=== PATIENT | male | born 1955 | race Caucasian/White ===

== ENCOUNTER 2018-11-29 06:57 | Emergency (ER) | payer MEDICAID, OTHER ==
[~2018-11-29] VITALS: Ht 172.7 cm; Wt 100.5 kg
[~2018-11-29 06:57] MED LIST: AMLO-150 PO; BETA15CR4 TP; CALA180L4 TP; DIPH25CA61 PO; LINE600T15 PO; TRAM50TA2 PO
[2018-11-29 07:00] VITALS: BP 169/107
[2018-11-29] MEDS ORDERED: CEFAZOLIN 1,000 MG IM ONE (07:30)
[2018-11-29] MEDS ORDERED: TRIAMCINOLONE ACETONIDE 40 MG/ML, 1ML IM ONE (07:30)
[2018-11-29] MEDS ORDERED: CEFAZOLIN 1,000 MG ONE (07:33)
--- NOTE | 2018-11-29 07:52 | NUR ---
PT MEDICATED - 2 IM INJECTIONS. PT APPROPRIATE FOR DC.
--- NOTE | 2018-11-29 07:55 | NUR ---
Patient/Caregiver given discharge instructions and they have confirmed that they understand the instructions. Patient ambulatory with steady gait.
== END 2018-11-29 08:06 | disposition home or self-care (01) ==
LOC: ED 07:46
DX: L20.9 Atopic dermatitis, unspecified (principal); I10 Essential (primary) hypertension
CPT/HCPCS: 96372; 99283; J0690; J3301

== ENCOUNTER 2020-10-10 11:01 | Emergency (ER) | payer SELFPAY ==
[~2020-10-10] VITALS: Ht 162.6 cm; Wt 89.4 kg
[2020-10-10 12:06] LABS: MEAN CORPUSCULAR HEMOGLOBIN 28.4 pg (27.5-34.5); MEAN CORPUSCULAR HGB CONC 33.5 g/dL (33.2-36.2); MEAN PLATELET VOLUME 7.2 fL (7.4-10.4); PLATELET COUNT 490 x10^3/uL (130-400); RED BLOOD COUNT 5.23 x10^6/uL (4.38-5.82); RED CELL DISTRIBUTION WIDTH 13.6 % (9.4-14.8)
[2020-10-10 12:52] LABS: <RBC MORPHOLOGY> NORMAL; EOS#(MANUAL) 3.23 x10^3/uL (0.0-0.4); EOS% (MANUAL) 25 % (1-7); LYMPH#(MANUAL) 1.55 x10^3/uL (1-3.4); LYMPHS% (MANUAL) 12 % (22-44); MONOS#(MANUAL) 0.77 x10^3/uL (0.3-2.7); MONOS% (MANUAL) 6 % (2-9); SEG#(MANUAL) 7.35 x10^3/uL (1.8-6.8); SEGS% (MANUAL) 57 % (42-75)
[2020-10-10 12:53] LABS: <PLATELET ESTIMATE> INCREASED; <PLT MORPHOLOGY> NORMAL PLT MORPH
--- NOTE | 2020-10-10 15:29 | NUR ---
PT AMBULATED TO ROOM FROM LOBBY AT THIS TIME WITH STEADY GAIT.
[2020-10-10] MEDS ORDERED: COLCHICINE (15:58)
--- NOTE | 2020-10-10 15:59 | NUR ---
PT C/O BILAT LE REDNESS PAIN X2 WEEKS, STARTED ABOUT 8 HRS AFTER SECOND COVID VACCINE. PT HX REDNESS PAIN SKIN ALLERGY TO TORSO AND ARMS WHEN HE DOESN'T GET HIS ALLERGY SHOT. PT HAS NOT RECEIVED ALLERGY SHOT FOR 3 YEARS, PT TORSO AND ARMS RED, DRY, FLAKEY AND SENSITIVE TO TOUCH. BILAT LE LOOK THE SAME AT TOR[place] AND ARMS. PT CONNECTED TO MONITORING. CALL LIGHT IN REACH.
--- NOTE | 2020-10-10 16:02 | NUR ---
ERMD AT BEDSIDE FOR ASSESSMENT
[2020-10-10] MEDS ORDERED: hydrOXyzine 50MG TABLET ONE (16:13)
--- NOTE | 2020-10-10 16:17 | NUR ---
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
--- NOTE | 2020-10-10 16:19 | NUR ---
LAB CAN USE BLOOD ALREADY COLLECTED.
[2020-10-10 16:43] LABS: ALANINE AMINOTRANSFERASE 26 U/L (12-78); ALBUMIN 3.7 g/dL (3.4-5.0); ANION GAP 7 mmol/L (5-15); CALCIUM 9.6 mg/dL (8.5-10.1); CHLORIDE 106 mmol/L (98-107); CREATININE 1.23 mg/dL (0.7-1.3)
[2020-10-10 16:45] LABS: ALKALINE PHOSPHATASE 99 U/L (45-117); BILIRUBIN,TOTAL 0.2 mg/dL (0.2-1.0); TOTAL PROTEIN 8.4 g/dL (6.4-8.2)
--- NOTE | 2020-10-10 16:53 | NUR ---
ALL RESULTS ARE BACK AT THIS TIME. CHART UP FOR RECHECK.
[2020-10-10 17:39] VITALS: BP 202/114
== END 2020-10-10 17:59 | disposition home or self-care (01) ==
LOC: ED 16:53
DX: L03.115 Cellulitis of right lower limb (principal); L03.116 Cellulitis of left lower limb; L20.84 Intrinsic (allergic) eczema; I10 Essential (primary) hypertension
CPT/HCPCS: 36415; 80053; 85025; 99283; J7512; Q0177

== ENCOUNTER 2021-01-13 07:56 | Inpatient (IN) | payer SELFPAY ==
[~2021-01-13] VITALS: Ht 172.7 cm; Wt 90.3 kg
[~2021-01-13 07:56] MED LIST changes: +COLCHICINE
--- NOTE | 2021-01-13 08:30 | NUR ---
PT BROUGHT BACK FROM TRIAGE WITH COMPLAINT OF COUGH, SOB FOR 4 DAYS. PT DENIES CP, N/V, OR RECENT TAUMA.
[2021-01-13 09:17] LABS: BASOPHILS % (AUTO) 1 % (0-1); EOSINOPHILS % (AUTO) 7 % (1-7); LYMPHOCYTES % (AUTO) 11 % (22-44); MEAN CORPUSCULAR HEMOGLOBIN 27.8 pg (27.5-34.5); MEAN CORPUSCULAR HGB CONC 33.7 g/dL (33.2-36.2); MEAN PLATELET VOLUME 7.6 fL (7.4-10.4); MONOCYTES % (AUTO) 9 % (2-9); NEUTROPHILS % (AUTO) 73 % (42-75); PLATELET COUNT 607 x10^3/uL (130-400); RED BLOOD COUNT 4.63 x10^6/uL (4.38-5.82); RED CELL DISTRIBUTION WIDTH 13.7 % (9.4-14.8)
--- NOTE | 2021-01-13 09:20 | NUR ---
PT resting in bed, call light in reach.
[2021-01-13 09:21] LABS: ANION GAP 8 mmol/L (5-15); CALCIUM 9.1 mg/dL (8.5-10.1); CHLORIDE 108 mmol/L (98-107); CREATININE 1.71 mg/dL (0.7-1.3)
--- NOTE | 2021-01-13 09:56 | NUR ---
CONSULT TO CARDIOLOGY
--- NOTE | 2021-01-13 10:18 | NUR ---
TASK RN NOTE: IV STARTED. PT REPORTS TAKING AN ALLERGY MEDICATION "THAT YOU'RE ONLY SUPPOSED TO TAKE 1 EVERY 24 HOURS AND I TOOK 4. IT DID WEIRD THINGS TO MY BODY." PT REPORTS "IT STARTED WITH A C"
[2021-01-13] MEDS ORDERED: CEFTRIAXONE 1,000 MG in DEXTROSE 5% 50 ML IVPB ONE (10:30)
[2021-01-13] MEDS ORDERED: AZITHROMYCIN 500 MG in SODIUM CHLORIDE 0.9% 250 ML IV ONE (10:30)
--- NOTE | 2021-01-13 10:49 | NUR ---
Dr Amaya at bedside
--- NOTE | 2021-01-13 10:56 | NUR ---
code cardiac called
[2021-01-13] MEDS ORDERED: HEPARIN 1,000 UNITS/ML, 10ML ONE (11:02)
[2021-01-13] MEDS ORDERED: MIDAZOLAM 1 MG/ML, 5ML ONE (11:02)
[2021-01-13] MEDS ORDERED: BIVALIRUDIN 250 MG ONE (11:02)
[2021-01-13] MEDS ORDERED: VERAPAMIL 2.5 MG/ML, 2ML ONE (11:02)
[2021-01-13] MEDS ORDERED: LIDOCAINE 1%, 20ML ONE (11:02)
[2021-01-13] MEDS ORDERED: FENTANYL PF 100 MCG/2ML ONE (11:02)
[2021-01-13] MEDS ORDERED: ASPIRIN 81 MG TABLET EC ONE (11:08)
--- NOTE | 2021-01-13 11:21 | NUR ---
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
[2021-01-13] MEDS ORDERED: morphine SULFATE 10 MG/ML, 1ML IVPush PRN (12:30)
[2021-01-13] MEDS ORDERED: ONDANSETRON ODT 4 MG PO PRN (12:30)
[2021-01-13] MEDS ORDERED: ACETAMINOPHEN 325 MG TABLET PO PRN (12:30)
[2021-01-13] MEDS ORDERED: DOCUSATE 100 MG CAPSULE PO PRN (12:30)
[2021-01-13] MEDS ORDERED: BISACODYL 10 MG SUPP PR PRN (12:30)
[2021-01-13] MEDS ORDERED: hydrALAzine 20 MG/ML, 1ML IVPush PRN (12:30)
[2021-01-13] MEDS ORDERED: PROMETHAZINE 25 MG/ML, 1ML IM PRN (12:30)
[2021-01-13] MEDS ORDERED: ONDANSETRON 2MG/ML, 2ML IVPush PRN (12:30)
[2021-01-13] MEDS ORDERED: POLYETHYLENE GLYCOL 17 GM PACKET PO PRN (12:30)
[2021-01-13] MEDS: AZITHROMYCIN 500 MG TABLET PO SCH (14:34)
[2021-01-13] MEDS ORDERED: GUAIFENESIN 100 MG/5 ML, 10ML UDC ONE ×2 (15:48→19:53)
[2021-01-13] MEDS: GUAIFENESIN 100 MG/5 ML, 5ML UDC PO PRN ×2 (15:50→23:49)
[2021-01-13] MEDS: OXYcodone IR 5MG TABLET PO PRN ×2 (15:51→20:28)
[2021-01-13] MEDS: ALBUTEROL HFA 90 MCG/SPRAY INH PRN (23:49)
[2021-01-14 00:45] LABS: TROPONIN I 0.173 ng/mL (0.000-0.045)
[2021-01-14] MEDS: ALBUTEROL HFA 90 MCG/SPRAY INH PRN ×3 (04:14→21:26)
[2021-01-14] MEDS: GUAIFENESIN 100 MG/5 ML, 5ML UDC PO PRN (04:14)
[2021-01-14 06:00] LABS: BASOPHILS % (AUTO) 1 % (0-1); EOSINOPHILS % (AUTO) 10 % (1-7); LYMPHOCYTES % (AUTO) 9 % (22-44); MEAN CORPUSCULAR HEMOGLOBIN 27.2 pg (27.5-34.5); MEAN CORPUSCULAR HGB CONC 32.7 g/dL (33.2-36.2); MEAN PLATELET VOLUME 7.6 fL (7.4-10.4); MONOCYTES % (AUTO) 11 % (2-9); NEUTROPHILS % (AUTO) 69 % (42-75); PLATELET COUNT 515 x10^3/uL (130-400); RED BLOOD COUNT 4.38 x10^6/uL (4.38-5.82); RED CELL DISTRIBUTION WIDTH 13.9 % (9.4-14.8)
[2021-01-14] MEDS: ASPIRIN 81 MG TABLET EC PO SCH (06:02)
[2021-01-14 06:17] LABS: ALANINE AMINOTRANSFERASE 20 U/L (12-78); ALBUMIN 2.6 g/dL (3.4-5.0); ANION GAP 9 mmol/L (5-15); CALCIUM 8.7 mg/dL (8.5-10.1); CHLORIDE 108 mmol/L (98-107); CHOLESTEROL, TOTAL 158 mg/dL (140-239)
[2021-01-14 06:19] LABS: ALKALINE PHOSPHATASE 70 U/L (45-117); BILIRUBIN,TOTAL 0.4 mg/dL (0.2-1.0); CHOL/HDL RATIO 5.4; HDL CHOL % 18 % (26-37); HDL CHOLESTEROL (DIRECT) 29 mg/dL (40-60); LDL CHOLESTEROL,CALCULATED 109 mg/dL (54-169); LDL/HDL RATIO 3.8 (0.5-3.0); TRIGLYCERIDES 100 mg/dL (50-200); VLDL CHOLESTEROL 20 mg/dL (0-25)
[2021-01-14] MEDS: AZITHROMYCIN 500 MG TABLET PO SCH (08:26)
[2021-01-14] MEDS: CEFTRIAXONE 1,000 MG in DEXTROSE 5% 50 ML IVPB SCH (10:06)
[2021-01-14 15:22] VITALS: BP 132/82
[2021-01-14 20:44] VITALS: BP 106/68
[2021-01-14] MEDS ORDERED: ATORVASTATIN 20 MG TABLET PO SCH (21:00)
[2021-01-14] MEDS: HEPARIN 5,000 UNITS/ML, 1ML SQ SCH (23:33)
[2021-01-15 01:18] VITALS: BP 132/80
[2021-01-15] MEDS: ASPIRIN 81 MG TABLET EC PO SCH (05:39)
[2021-01-15] MEDS: HEPARIN 5,000 UNITS/ML, 1ML SQ SCH ×3 (05:40→22:35)
[2021-01-15 05:41] LABS: BASOPHILS % (AUTO) 1 % (0-1); EOSINOPHILS % (AUTO) 11 % (1-7); LYMPHOCYTES % (AUTO) 8 % (22-44); MEAN CORPUSCULAR HEMOGLOBIN 27.8 pg (27.5-34.5); MEAN CORPUSCULAR HGB CONC 33.4 g/dL (33.2-36.2); MEAN PLATELET VOLUME 7.5 fL (7.4-10.4); MONOCYTES % (AUTO) 13 % (2-9); NEUTROPHILS % (AUTO) 68 % (42-75); PLATELET COUNT 425 x10^3/uL (130-400); RED CELL DISTRIBUTION WIDTH 13.8 % (9.4-14.8)
[2021-01-15] MEDS: ALBUTEROL HFA 90 MCG/SPRAY INH PRN ×5 (05:44→22:34)
[2021-01-15 05:58] LABS: CHLORIDE 110 mmol/L (98-107)
[2021-01-15 06:15] LABS: ALANINE AMINOTRANSFERASE 20 U/L (12-78); ALBUMIN 2.4 g/dL (3.4-5.0); ALKALINE PHOSPHATASE 66 U/L (45-117); ANION GAP 10 mmol/L (5-15); BILIRUBIN,TOTAL 0.5 mg/dL (0.2-1.0); CALCIUM 8.7 mg/dL (8.5-10.1); CREATININE 0.95 mg/dL (0.7-1.3); TOTAL PROTEIN 7.9 g/dL (6.4-8.2)
[2021-01-15 09:13] VITALS: BP 117/76
[2021-01-15] MEDS: AZITHROMYCIN 500 MG TABLET PO SCH (10:47)
[2021-01-15] MEDS: CEFTRIAXONE 1,000 MG in DEXTROSE 5% 50 ML IVPB SCH (11:46)
[2021-01-15 14:00] VITALS: BP 106/67
[2021-01-15] MEDS: ATORVASTATIN 40 MG TABLET PO SCH (21:18)
[2021-01-15 21:21] VITALS: BP 123/66
[2021-01-15] MEDS: DIPHENHYDRAMINE 50 MG/ML, 1ML IVPush PRN (21:40)
[2021-01-16 01:36] VITALS: BP 119/74
[2021-01-16 04:29] VITALS: BP 119/74
[2021-01-16] MEDS: ALBUTEROL HFA 90 MCG/SPRAY INH PRN ×3 (04:31→21:00)
[2021-01-16] MEDS: ASPIRIN 81 MG TABLET EC PO SCH (05:59)
[2021-01-16] MEDS: HEPARIN 5,000 UNITS/ML, 1ML SQ SCH ×3 (05:59→21:01)
[2021-01-16] MEDS: DIPHENHYDRAMINE 50 MG/ML, 1ML IVPush PRN ×3 (06:19→21:01)
[2021-01-16 06:22] LABS: BASOPHILS % (AUTO) 1 % (0-1); EOSINOPHILS % (AUTO) 10 % (1-7); LYMPHOCYTES % (AUTO) 10 % (22-44); MEAN CORPUSCULAR HEMOGLOBIN 27.4 pg (27.5-34.5); MEAN CORPUSCULAR HGB CONC 33.3 g/dL (33.2-36.2); MEAN PLATELET VOLUME 7.5 fL (7.4-10.4); MONOCYTES % (AUTO) 10 % (2-9); NEUTROPHILS % (AUTO) 69 % (42-75); PLATELET COUNT 563 x10^3/uL (130-400); RED BLOOD COUNT 4.16 x10^6/uL (4.38-5.82); RED CELL DISTRIBUTION WIDTH 13.7 % (9.4-14.8)
[2021-01-16 06:29] LABS: ANION GAP 7 mmol/L (5-15); CALCIUM 8.6 mg/dL (8.5-10.1); CHLORIDE 111 mmol/L (98-107)
[2021-01-16 06:30] LABS: CREATININE 1.05 mg/dL (0.7-1.3)
[2021-01-16 06:55] VITALS: BP 108/68
[2021-01-16] MEDS: AZITHROMYCIN 500 MG TABLET PO SCH (09:58)
[2021-01-16] MEDS: CEFTRIAXONE 1,000 MG in DEXTROSE 5% 50 ML IVPB SCH (11:05)
[2021-01-16] MEDS: SPIRONOLACTONE 25 MG TABLET PO SCH (13:13)
[2021-01-16] MEDS: BUMETANIDE 1 MG TABLET PO SCH (13:13)
[2021-01-16 13:15] VITALS: BP 113/72
[2021-01-16] MEDS ORDERED: FUROSEMIDE 20 MG/2 ML IV ONE (14:30)
[2021-01-16] MEDS: ATORVASTATIN 40 MG TABLET PO SCH (21:00)
[2021-01-16 21:06] VITALS: BP 133/84
[2021-01-16] MEDS ORDERED: GUAIFENESIN 100 MG/5 ML, 10ML UDC ONE (21:17)
[2021-01-16] MEDS: GUAIFENESIN 100 MG/5 ML, 5ML UDC PO PRN (21:19)
[2021-01-17] MEDS ORDERED: GUAIFENESIN 100 MG/5 ML, 10ML UDC ONE (02:41)
[2021-01-17 02:49] VITALS: BP 117/73
[2021-01-17] MEDS: GUAIFENESIN 100 MG/5 ML, 5ML UDC PO PRN (02:53)
[2021-01-17] MEDS: ALBUTEROL HFA 90 MCG/SPRAY INH PRN ×4 (02:53→20:57)
[2021-01-17] MEDS: DIPHENHYDRAMINE 50 MG/ML, 1ML IVPush PRN ×3 (02:53→22:43)
[2021-01-17] MEDS: ASPIRIN 81 MG TABLET EC PO SCH (06:09)
[2021-01-17] MEDS: HEPARIN 5,000 UNITS/ML, 1ML SQ SCH ×3 (06:09→22:42)
[2021-01-17 07:03] VITALS: BP 120/78
[2021-01-17] MEDS: AZITHROMYCIN 500 MG TABLET PO SCH (08:52)
[2021-01-17] MEDS: BUMETANIDE 1 MG TABLET PO SCH (08:53)
[2021-01-17] MEDS: CARVEDILOL 3.125 MG TABLET PO SCH ×2 (08:53→17:33)
[2021-01-17] MEDS: LOSARTAN 25MG TABLET PO SCH (08:53)
[2021-01-17] MEDS: SPIRONOLACTONE 25 MG TABLET PO SCH (08:53)
[2021-01-17] MEDS: CEFTRIAXONE 1,000 MG in DEXTROSE 5% 50 ML IVPB SCH (11:09)
[2021-01-17] MEDS ORDERED: FUROSEMIDE 20 MG TABLET PO ONE (12:00)
[2021-01-17 12:03] VITALS: BP 119/69
[2021-01-17 13:29] VITALS: BP 128/81
[2021-01-17] MEDS ORDERED: POTASSIUM CHLORIDE 20 MEQ TAB.ER.PRT PO ONE (13:30)
[2021-01-17] MEDS ORDERED: FUROSEMIDE 20 MG/2 ML IV ONE (16:00)
[2021-01-17 17:32] VITALS: BP 113/74
[2021-01-17] MEDS: ATORVASTATIN 40 MG TABLET PO SCH (20:57)
[2021-01-17 20:59] VITALS: BP 113/76
[2021-01-17] MEDS: OXYcodone IR 5MG TABLET PO PRN (22:43)
[2021-01-18 01:31] VITALS: BP 115/74
[2021-01-18] MEDS: ALBUTEROL HFA 90 MCG/SPRAY INH PRN ×3 (01:35→21:40)
[2021-01-18] MEDS ORDERED: GUAIFENESIN 100 MG/5 ML, 10ML UDC ONE ×3 (01:59→11:55)
[2021-01-18] MEDS: GUAIFENESIN 100 MG/5 ML, 5ML UDC PO PRN ×3 (02:09→21:43)
[2021-01-18] MEDS ORDERED: OMNIPAQUE 350 MG/ML, 100ML BOTTLE ONE (02:17)
[2021-01-18 05:42] VITALS: BP 114/74
[2021-01-18 05:44] VITALS: BP 124/70
[2021-01-18] MEDS: ASPIRIN 81 MG TABLET EC PO SCH (05:46)
[2021-01-18] MEDS: DIPHENHYDRAMINE 50 MG/ML, 1ML IVPush PRN ×2 (05:46→21:45)
[2021-01-18] MEDS: CARVEDILOL 3.125 MG TABLET PO SCH ×2 (05:46→17:51)
[2021-01-18] MEDS: HEPARIN 5,000 UNITS/ML, 1ML SQ SCH ×3 (05:46→21:38)
[2021-01-18 06:03] LABS: BASOPHILS % (AUTO) 1 % (0-1); EOSINOPHILS % (AUTO) 10 % (1-7); LYMPHOCYTES % (AUTO) 9 % (22-44); MEAN CORPUSCULAR HEMOGLOBIN 27.2 pg (27.5-34.5); MEAN CORPUSCULAR HGB CONC 32.7 g/dL (33.2-36.2); MEAN PLATELET VOLUME 7.7 fL (7.4-10.4); MONOCYTES % (AUTO) 12 % (2-9); NEUTROPHILS % (AUTO) 68 % (42-75); PLATELET COUNT 537 x10^3/uL (130-400); RED BLOOD COUNT 4.48 x10^6/uL (4.38-5.82); RED CELL DISTRIBUTION WIDTH 13.8 % (9.4-14.8)
[2021-01-18 06:09] LABS: ANION GAP 6 mmol/L (5-15); CALCIUM 9.2 mg/dL (8.5-10.1); CHLORIDE 108 mmol/L (98-107); CREATININE 1.14 mg/dL (0.7-1.3)
[2021-01-18] MEDS: OXYcodone IR 5MG TABLET PO PRN ×3 (06:16→21:51)
[2021-01-18 06:36] VITALS: BP 124/70
[2021-01-18] MEDS ORDERED: FUROSEMIDE 20 MG TABLET PO SCH (09:00)
[2021-01-18] MEDS ORDERED: FUROSEMIDE 40 MG/4 ML IV ONE (10:00)
[2021-01-18] MEDS: AZITHROMYCIN 500 MG TABLET PO SCH (10:09)
[2021-01-18] MEDS: LOSARTAN 25MG TABLET PO SCH (10:09)
[2021-01-18] MEDS: SPIRONOLACTONE 25 MG TABLET PO SCH (10:09)
[2021-01-18] MEDS: BUMETANIDE 1 MG TABLET PO SCH (10:09)
[2021-01-18 10:28] LABS: ALBUMIN 2.6 g/dL (3.4-5.0)
[2021-01-18 10:30] LABS: TOTAL PROTEIN 8.1 g/dL (6.4-8.2)
[2021-01-18] MEDS ORDERED: LIDOCAINE 1%, 10ML ONE (11:22)
[2021-01-18] MEDS: CEFTRIAXONE 1,000 MG in DEXTROSE 5% 50 ML IVPB SCH (12:59)
[2021-01-18 14:15] VITALS: BP 108/70
[2021-01-18] MEDS ORDERED: FUROSEMIDE 20 MG/2 ML IV SCH (17:00)
[2021-01-18] MEDS: ATORVASTATIN 40 MG TABLET PO SCH (21:38)
[2021-01-18 21:54] VITALS: BP 113/59
[2021-01-19 02:00] VITALS: BP 105/68
[2021-01-19] MEDS: OXYcodone IR 5MG TABLET PO PRN ×4 (02:14→21:13)
[2021-01-19] MEDS: ALBUTEROL HFA 90 MCG/SPRAY INH PRN ×3 (02:30→16:41)
[2021-01-19] MEDS: HEPARIN 5,000 UNITS/ML, 1ML SQ SCH ×3 (06:07→21:11)
[2021-01-19] MEDS: ASPIRIN 81 MG TABLET EC PO SCH (06:07)
[2021-01-19 06:17] LABS: BASOPHILS % (AUTO) 1 % (0-1); EOSINOPHILS % (AUTO) 10 % (1-7); LYMPHOCYTES % (AUTO) 13 % (22-44); MEAN CORPUSCULAR HEMOGLOBIN 27.2 pg (27.5-34.5); MEAN PLATELET VOLUME 7.6 fL (7.4-10.4); MONOCYTES % (AUTO) 11 % (2-9); NEUTROPHILS % (AUTO) 65 % (42-75); PLATELET COUNT 504 x10^3/uL (130-400); RED BLOOD COUNT 4.45 x10^6/uL (4.38-5.82); RED CELL DISTRIBUTION WIDTH 13.8 % (9.4-14.8)
[2021-01-19 06:25] LABS: ANION GAP 8 mmol/L (5-15); CALCIUM 9.3 mg/dL (8.5-10.1); CHLORIDE 109 mmol/L (98-107); CREATININE 1.21 mg/dL (0.7-1.3)
[2021-01-19 06:40] VITALS: BP 101/62
[2021-01-19] MEDS ORDERED: FUROSEMIDE 20 MG/2 ML IV SCH (09:00)
[2021-01-19] MEDS ORDERED: GUAIFENESIN 100 MG/5 ML, 10ML UDC ONE ×3 (09:36→21:34)
[2021-01-19] MEDS: AZITHROMYCIN 500 MG TABLET PO SCH (09:47)
[2021-01-19] MEDS: CARVEDILOL 3.125 MG TABLET PO SCH ×2 (09:47→21:11)
[2021-01-19] MEDS: LOSARTAN 25MG TABLET PO SCH (09:48)
[2021-01-19] MEDS: SPIRONOLACTONE 25 MG TABLET PO SCH (09:48)
[2021-01-19] MEDS: GUAIFENESIN 100 MG/5 ML, 5ML UDC PO PRN ×3 (09:49→21:36)
[2021-01-19] MEDS: CEFTRIAXONE 1,000 MG in DEXTROSE 5% 50 ML IVPB SCH (10:33)
[2021-01-19] MEDS: DIPHENHYDRAMINE 50 MG/ML, 1ML IVPush PRN ×2 (10:33→21:37)
[2021-01-19 14:16] VITALS: BP 98/62
[2021-01-19] MEDS ORDERED: FUROSEMIDE 20 MG/2 ML IV ONE (15:00)
[2021-01-19 20:26] VITALS: BP 104/62
[2021-01-19] MEDS: ATORVASTATIN 40 MG TABLET PO SCH (21:12)
[2021-01-20 01:10] VITALS: BP 112/66
[2021-01-20] MEDS ORDERED: GUAIFENESIN 100 MG/5 ML, 10ML UDC ONE ×2 (04:31→10:35)
[2021-01-20 04:47] VITALS: BP 97/57
[2021-01-20] MEDS: CARVEDILOL 3.125 MG TABLET PO SCH ×2 (04:49→20:09)
[2021-01-20] MEDS: ASPIRIN 81 MG TABLET EC PO SCH (04:49)
[2021-01-20] MEDS: HEPARIN 5,000 UNITS/ML, 1ML SQ SCH ×3 (04:50→21:35)
[2021-01-20] MEDS: OXYcodone IR 5MG TABLET PO PRN ×3 (04:50→21:36)
[2021-01-20] MEDS: DIPHENHYDRAMINE 50 MG/ML, 1ML IVPush PRN ×3 (04:50→20:09)
[2021-01-20] MEDS: GUAIFENESIN 100 MG/5 ML, 5ML UDC PO PRN (04:51)
[2021-01-20] MEDS: ALBUTEROL HFA 90 MCG/SPRAY INH PRN (05:35)
[2021-01-20 08:00] VITALS: BP 96/61
[2021-01-20] MEDS: LOSARTAN 25MG TABLET PO SCH (10:40)
[2021-01-20] MEDS: AZITHROMYCIN 500 MG TABLET PO SCH (10:40)
[2021-01-20] MEDS: SPIRONOLACTONE 25 MG TABLET PO SCH (10:40)
[2021-01-20 10:42] VITALS: BP 96/61
[2021-01-20] MEDS ORDERED: FUROSEMIDE 20 MG/2 ML IV ONE ×2 (11:30→17:00)
[2021-01-20] MEDS: CEFTRIAXONE 1,000 MG in DEXTROSE 5% 50 ML IVPB SCH (11:48)
[2021-01-20 14:00] VITALS: BP 89/55
[2021-01-20] MEDS: FLUTICASONE/VILANTEROL 200-25MCG/INH INH SCH (14:19)
[2021-01-20] MEDS: GUAIFENESIN/DM 100-10MG, 5ML UDC PO PRN (16:39)
[2021-01-20 20:08] VITALS: BP 97/62
[2021-01-20] MEDS: ATORVASTATIN 40 MG TABLET PO SCH (20:09)
[2021-01-21] VITALS (7 sets, daily range): BP systolic 90–101; BP diastolic 60–64
[2021-01-21] MEDS: ALBUTEROL HFA 90 MCG/SPRAY INH PRN ×2 (00:57→09:22)
[2021-01-21] MEDS: GUAIFENESIN/DM 100-10MG, 5ML UDC PO PRN ×3 (00:57→14:34)
[2021-01-21] MEDS: CARVEDILOL 3.125 MG TABLET PO SCH ×2 (05:50→16:59)
[2021-01-21] MEDS: HEPARIN 5,000 UNITS/ML, 1ML SQ SCH ×3 (05:51→20:11)
[2021-01-21] MEDS: ASPIRIN 81 MG TABLET EC PO SCH (05:51)
[2021-01-21] MEDS: DIPHENHYDRAMINE 50 MG/ML, 1ML IVPush PRN ×2 (05:51→11:21)
[2021-01-21 06:13] LABS: BASOPHILS % (AUTO) 1 % (0-1); EOSINOPHILS % (AUTO) 13 % (1-7); LYMPHOCYTES % (AUTO) 13 % (22-44); MEAN CORPUSCULAR HEMOGLOBIN 27.2 pg (27.5-34.5); MEAN CORPUSCULAR HGB CONC 33.4 g/dL (33.2-36.2); MEAN PLATELET VOLUME 7.6 fL (7.4-10.4); MONOCYTES % (AUTO) 13 % (2-9); NEUTROPHILS % (AUTO) 60 % (42-75); PLATELET COUNT 456 x10^3/uL (130-400); RED BLOOD COUNT 4.16 x10^6/uL (4.38-5.82); RED CELL DISTRIBUTION WIDTH 13.8 % (9.4-14.8)
[2021-01-21 06:21] LABS: ANION GAP 6 mmol/L (5-15); CALCIUM 8.6 mg/dL (8.5-10.1); CHLORIDE 107 mmol/L (98-107); CREATININE 1.34 mg/dL (0.7-1.3)
[2021-01-21] MEDS: FLUTICASONE/VILANTEROL 200-25MCG/INH INH SCH (09:18)
[2021-01-21] MEDS: LOSARTAN 25MG TABLET PO SCH (09:19)
[2021-01-21] MEDS: AZITHROMYCIN 500 MG TABLET PO SCH (09:19)
[2021-01-21] MEDS: OXYcodone IR 5MG TABLET PO PRN (09:20)
[2021-01-21] MEDS: CEFTRIAXONE 1,000 MG in DEXTROSE 5% 50 ML IVPB SCH (11:20)
[2021-01-21] MEDS: AMOXICILLIN/CLAV 875-125MG TABLET PO SCH ×2 (13:07→20:11)
[2021-01-21] MEDS: DIPHENHYDRAMINE 25 MG CAPSULE PO PRN ×2 (14:34→20:11)
[2021-01-21] MEDS: FUROSEMIDE 20 MG TABLET PO SCH (14:35)
[2021-01-21] MEDS: ATORVASTATIN 40 MG TABLET PO SCH (20:11)
[2021-01-22 01:36] VITALS: BP 102/59
[2021-01-22] MEDS: OXYcodone IR 5MG TABLET PO PRN ×2 (03:15→11:39)
[2021-01-22] MEDS: DIPHENHYDRAMINE 25 MG CAPSULE PO PRN ×2 (03:15→09:25)
[2021-01-22] MEDS: GUAIFENESIN/DM 100-10MG, 5ML UDC PO PRN ×2 (03:15→11:39)
[2021-01-22] MEDS: CARVEDILOL 3.125 MG TABLET PO SCH (06:03)
[2021-01-22] MEDS: HEPARIN 5,000 UNITS/ML, 1ML SQ SCH ×2 (06:03→14:00)
[2021-01-22] MEDS: ASPIRIN 81 MG TABLET EC PO SCH (06:03)
[2021-01-22 06:23] LABS: CHLORIDE 106 mmol/L (98-107)
[2021-01-22 06:28] LABS: ANION GAP 6 mmol/L (5-15); CALCIUM 8.6 mg/dL (8.5-10.1); CREATININE 1.47 mg/dL (0.7-1.3)
[2021-01-22 07:18] VITALS: BP 101/64
[2021-01-22] MEDS ORDERED: LOSARTAN 25MG TABLET PO SCH (09:00)
[2021-01-22] MEDS ORDERED: CLOPIDOGREL 75 MG TABLET PO SCH (09:00)
[2021-01-22] MEDS: FUROSEMIDE 20 MG TABLET PO SCH (09:25)
[2021-01-22] MEDS: AMOXICILLIN/CLAV 875-125MG TABLET PO SCH (09:25)
[2021-01-22] MEDS: FLUTICASONE/VILANTEROL 200-25MCG/INH INH SCH (09:26)
[2021-01-22] MEDS: ALBUTEROL HFA 90 MCG/SPRAY INH PRN (11:39)
[2021-01-22 11:40] VITALS: BP 106/68
[2021-01-22] MEDS ORDERED: FLUT1BLS INH ×3 (12:10→16:20)
[2021-01-22] MEDS ORDERED: CARV3.1212 PO ×3 (12:10→16:20)
[2021-01-22] MEDS ORDERED: ASPI81TA45 PO ×3 (12:10→16:20)
[2021-01-22] MEDS ORDERED: ATOR40TA78 PO ×3 (12:10→16:20)
[2021-01-22] MEDS ORDERED: ALBU18HF INH ×3 (12:10→16:20)
[2021-01-22] MEDS ORDERED: FURO20TA3 PO ×3 (12:10→16:20)
[2021-01-22] MEDS ORDERED: CLOP75TA PO ×3 (12:10→16:20)
[2021-01-22] MEDS ORDERED: LOSA25TA25 PO ×3 (12:10→16:20)
[2021-01-22] MEDS ORDERED: PRED5TAB PO ×3 (12:10→16:20)
[2021-01-22] MEDS ORDERED: DOCU-181 PO ×3 (12:10→16:20)
[2021-01-22] MEDS ORDERED: GUAI5SYR PO ×3 (12:10→16:20)
[2021-01-22] MEDS ORDERED: AMOX1TAB12 PO ×3 (12:10→16:20)
[2021-01-22 13:40] VITALS: BP 101/65
== END 2021-01-22 16:12 | disposition home or self-care (01) | DRG 280 ==
LOC: ED 08:23 → CCU 09:45 → 5SO 01-14 14:45
PROVIDERS: ADMIT Internal Medicine; ATTEND Internal Medicine
PROC: 4A023N7 Measurement of Cardiac Sampling and Pressure, Left Heart, Percutaneous Approach (ICD-10-PCS; principal; 2021-01-13)
PROC: B2111ZZ Fluoroscopy of Multiple Coronary Arteries using Low Osmolar Contrast (ICD-10-PCS; 2021-01-13)
PROC: B2151ZZ Fluoroscopy of Left Heart using Low Osmolar Contrast (ICD-10-PCS; 2021-01-13)
PROC: 02JY3ZZ Inspection of Great Vessel, Percutaneous Approach (ICD-10-PCS; 2021-01-13)
PROC: 0W9B3ZZ Drainage of Left Pleural Cavity, Percutaneous Approach (ICD-10-PCS; 2021-01-18)
PROC: 0W993ZZ Drainage of Right Pleural Cavity, Percutaneous Approach (ICD-10-PCS; 2021-01-18)
DX: I21.09 ST elevation (STEMI) myocardial infarction involving other coronary artery of anterior wall (principal); I50.43 Acute on chronic combined systolic (congestive) and diastolic (congestive) heart failure; J15.9 Unspecified bacterial pneumonia; J96.01 Acute respiratory failure with hypoxia; N17.0 Acute kidney failure with tubular necrosis; I13.0 Hypertensive heart and chronic kidney disease with heart failure and stage 1 through stage 4 chronic kidney disease, or unspecified chronic kidney disease; I51.81 Takotsubo syndrome; D63.8 Anemia in other chronic diseases classified elsewhere; E78.5 Hyperlipidemia, unspecified; I25.10 Atherosclerotic heart disease of native coronary artery without angina pectoris; J45.909 Unspecified asthma, uncomplicated; K76.0 Fatty (change of) liver, not elsewhere classified; F41.9 Anxiety disorder, unspecified; N18.9 Chronic kidney disease, unspecified; D72.829 Elevated white blood cell count, unspecified; Z20.822 Contact with and (suspected) exposure to COVID-19; Z79.82 Long term (current) use of aspirin; Z79.899 Other long term (current) drug therapy
CPT/HCPCS: 32555; 36415; 82945; 84145; 89051; 92920; 93458; 96365; 99285; J3490; 71045; 71046; 71275; 80048; 80053; 80061; 82040; 83036; 83605; 83615; 83735; 83880; 84100; 84155; 84157; 84443; 84484; 85025; 87040; 87070; 87075; 87081; 87205; 87635; 93005; 93306; 99156; 99157; C1760; C1769; C1894; G0378; J0583; J0696; J1644; J1940; J2250; J3010; Q9967; U0005; C1725; C1887; J1200; J7512; Q0163; U0003